=== PATIENT | female | born 1975 | race Asian ===

== ENCOUNTER 2017-09-18 10:30 | Outpatient (CLI) | payer BC ==
--- NOTE | 2017-09-18 15:57 | Mammography Report ---
BILATERAL DIGITAL SCREENING MAMMOGRAM with CAD: 09/18/17 10:30:00 CLINICAL: Routine screening. COMPARISON:09/06/16 FINDINGS: The breasts are heterogeneously dense, which may obscure small masses.Bilateral asymmetries or new and required additional imaging.No architectural distortion or suspicious calcifications. IMPRESSION: Bilateral asymmetries requiring further workup. BI-RADS CATEGORY: 0 -- Additional Imaging Evaluation Required RECOMMENDATION: Recall for bilateral spot compression views and bilateral breast ultrasound if needed. ACR BI-RADS MAMMOGRAPHIC CODES: 0 = Needs additional imaging evaluation; 1 = Negative; 2 = Benign; 3 = Probably benign; 4 = Suspicious; 5 = Malignant; 6 = Known biopsy-proven malignancy COMMENT: 1. Dense breast tissue, i.e., adenosis, fibrocystic changes, etc., may obscure an underlying neoplasm. 2. Approximately 10% of cancers are not detected with mammography. 3. A negative mammography report should not delay biopsy if a clinically suspicious mass is present. COMMENT: Patient follow-up letters are generated via our [employer] application.
== END 2017-09-18 10:31 | disposition home or self-care (01) ==
LOC: SPVWC 10:30
PROVIDERS: ATTEND Obstetrics & Gynecology
DX: Z12.31 Encounter for screening mammogram for malignant neoplasm of breast (principal)
CPT/HCPCS: 77067; G0202

== ENCOUNTER 2017-09-26 14:32 | Outpatient (CLI) | payer BC ==
--- NOTE | 2017-09-26 16:30 | Ultrasound Report ---
BILATERAL DIGITAL DIAGNOSTIC MAMMOGRAM and LEFT BREAST ULTRASOUND: 09/26/17 14:32:00 CLINICAL: Recall for bilateral asymmetries. COMPARISON:09/18/17 screening FINDINGS: Bilateral true lateral and bilateral spot compression views were performed. The right breast is negative. A persistent partially circumscribed asymmetry in the upper inner left breast. Ultrasound of the upper inner left breast was performed and demonstrated several benign cysts. The largest measures 1.9 cm at 11 o'clock 5 cm from the nipple and correlates with the mammographic density. No solid mass or shadowing. IMPRESSION: Benign cysts of the left breast and negative right breast. BI-RADS CATEGORY: 2 - - Benign RECOMMENDATION: Routine mammographic screening in one year. ACR BI-RADS MAMMOGRAPHIC CODES: 0 = Needs additional imaging evaluation; 1 = Negative; 2 = Benign; 3 = Probably benign; 4 = Suspicious; 5 = Malignant; 6 = Known biopsy-proven malignancy COMMENT: 1. Dense breast tissue, i.e., adenosis, fibrocystic changes, etc., may obscure an underlying neoplasm. 2. Approximately 10% of cancers are not detected with mammography. 3. A negative mammography report should not delay biopsy if a clinically suspicious mass is present. COMMENT: Patient follow-up letters are generated via our [employer] application.
== END 2017-09-26 14:33 | disposition home or self-care (01) ==
LOC: MAMMO 14:32
PROVIDERS: ATTEND Obstetrics & Gynecology
DX: N60.02 Solitary cyst of left breast (principal)
CPT/HCPCS: 76642; G0204; 77066

== ENCOUNTER 2019-09-24 08:32 | Outpatient (CLI) | payer BC ==
--- NOTE | 2019-09-25 09:40 | Mammography Report ---
DIGITAL SCREENING MAMMOGRAM WITH CAD, 09/24/2019 INDICATION: Routine screening mammography. TECHNIQUE: Digital bilateral 2D mammography was obtained in the craniocaudal and mediolateral obliq ue projections. This examination was interpreted with the benefit of Computer-Aided Detection analysi s. COMPARISON: 09/19/2018 FINDINGS: Breast Density: The breasts are heterogeneously dense, which may obscure small masses. There is no evidence of dominant mass, suspicious calcifications or architectural distortion in eithe r breast. IMPRESSION: No mammographic evidence of malignancy. Follow up recommendation: Routine yearly BI-RADS Category 1: Negative. A "normal" or negative report should not discourage follow up or biopsy of a clinically significant f inding. A written summary of these findings will be mailed to the patient. The patient will be entered into a mammography reporting system which will generate a reminder letter for the patient's next appointmen t at the appropriate interval. 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 Breast MRI is recommended for women with an approximate 20-25% or greater lifetime risk of breast cancer, including women with a strong family history of breast or ova lauro cancer or who have been treated for Hodgkin's disease. Signer Name: Farzad May MD Signed: 09/25/2019 9:36 AM Workstation Name: [id number]
== END 2019-09-24 08:33 | disposition home or self-care (01) ==
LOC: SPVWC 08:32
PROVIDERS: ATTEND Obstetrics & Gynecology
DX: Z12.31 Encounter for screening mammogram for malignant neoplasm of breast (principal)
CPT/HCPCS: 77067

== ENCOUNTER 2020-09-28 12:43 | Outpatient (CLI) | payer BC ==
--- NOTE | 2020-09-29 09:16 | Mammography Report ---
DIGITAL SCREENING MAMMOGRAM WITH CAD, 09/29/2020 CLINICAL INFORMATION / INDICATION: Routine screening mammography. SCREENING MAMMO TECHNIQUE: Digital bilateral 2D mammography was obtained in the craniocaudal and mediolateral obliqu e projections. This examination was interpreted with the benefit of Computer-Aided Detection analysis . COMPARISON: 09/06/2016 through 09/24/2019. FINDINGS: Breast Density: The breasts are heterogeneously dense, which may obscure small masses. No dominant mass, suspicious calcifications, or architectural distortion in either breast. IMPRESSION: No mammographic evidence of malignancy. Follow up recommendation: Routine yearly BI-RADS Category 1: Negative. A "normal" or negative report should not discourage follow up or biopsy of a clinically significant f inding. A written summary of these findings will be mailed to the patient. The patient will be entered into a mammography reporting system which will generate a reminder letter for the patient's next appointmen t at the appropriate interval. 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 Breast MRI is recommended for women with an approximate 20-25% or greater lifetime risk of breast cancer, including women with a strong family history of breast or ova lauro cancer or who have been treated for Hodgkin's disease. Signer Name: Garth Myers MD Signed: 09/29/2020 9:11 AM Workstation Name: [id number]
== END 2020-09-28 12:44 | disposition home or self-care (01) ==
LOC: SPVWC 12:43
PROVIDERS: ATTEND Obstetrics & Gynecology
DX: Z12.31 Encounter for screening mammogram for malignant neoplasm of breast (principal)
CPT/HCPCS: 77067

== ENCOUNTER 2021-09-30 15:44 | Outpatient (CLI) | payer BC | END 2021-09-30 15:45 | disposition home or self-care (01) | LOC: SPVWC 15:44 | PROVIDERS: ATTEND Obstetrics & Gynecology | DX: Z12.31 Encounter for screening mammogram for malignant neoplasm of breast (principal) | CPT/HCPCS: 77067 ==